=== PATIENT | male | born 1935 | race Caucasian/White ===

== ENCOUNTER 2018-05-25 11:40 | Outpatient (CLI) | payer MEDICARE, BC, MEDICAID | END 2018-05-25 23:59 | disposition home or self-care (01) | LOC: LAB 11:40 | PROVIDERS: ATTEND Internal Medicine Critical Care Medicine | DX: R05 Cough (principal); R06.02 Shortness of breath; Z87.891 Personal history of nicotine dependence | CPT/HCPCS: 36415 ==

== ENCOUNTER 2018-07-31 12:07 | Outpatient (CLI) | payer MEDICARE, BC, MEDICAID, OTHER | END 2018-07-31 23:59 | disposition home or self-care (01) | LOC: CARD DIAG 12:07 | PROVIDERS: ATTEND Internal Medicine Critical Care Medicine | DX: I08.3 Combined rheumatic disorders of mitral, aortic and tricuspid valves (principal); Z87.891 Personal history of nicotine dependence | CPT/HCPCS: 93306 ==

== ENCOUNTER 2018-10-26 09:07 | Emergency (ER) | payer MEDICARE, BC, MEDICAID, OTHER ==
[~2018-10-26] VITALS: Ht 170.2 cm; Wt 90.9 kg
[2018-10-26 10:17] LABS: BASOPHILS # (AUTO) 0.1 X10'3 (0-0.2); BASOPHILS % (AUTO) 0.8 % (0-1); EOSINOPHILS # (AUTO) 0.3 X10'3 (0-0.9); EOSINOPHILS % (AUTO) 2.6 % (0-6); HEMATOCRIT 48.4 % (42.0-52.0); HEMOGLOBIN 15.7 g/dl (14.0-17.9); LYMPHOCYTES # (AUTO) 0.9 X10'3 (1.1-4.8); LYMPHOCYTES % (AUTO) 7.5 % (21-51); MEAN CORPUSCULAR HEMOGLOBIN 29.8 PG (27.0-31.0); MEAN CORPUSCULAR HGB CONC 32.5 g/dL (33.0-36.5); MEAN CORPUSCULAR VOLUME 91.8 FL (78-98); MEAN PLATELET VOLUME 7.2 FL (7.4-10.4); MONOCYTES # (AUTO) 0.6 X10'3 (0-0.9); MONOCYTES % (AUTO) 4.8 % (2-12); NEUTROPHILS # (AUTO) 10.2 X10'3 (1.8-7.7); NEUTROPHILS % (AUTO) 84.3 % (42-75); PLATELET COUNT 238 X10'3 (140-440); RED BLOOD COUNT 5.27 X10'6 (4.70-6.10); RED CELL DISTRIBUTION WIDTH 16.1 % (11.5-14.5); WHITE BLOOD COUNT 12.1 X10'3 (4.5-11.0)
[2018-10-26 10:23] LABS: ALANINE AMINOTRANSFERASE 18 U/L (12-78); ALBUMIN 3.5 G/DL (3.4-5.0); ALKALINE PHOSPHATASE 89 IU/L (46-116); ANION GAP 7 (8-16); ASPARTATE AMINO TRANSFERASE 16 U/L (10-37); BILIRUBIN,TOTAL 0.9 MG/DL (0.1-1.0); BLOOD UREA NITROGEN 18 MG/DL (7-18); BUN/CREATININE RATIO 16.1 (5.4-32.0); CALCIUM 9.2 MG/DL (8.5-10.1); CHLORIDE 102 MMOL/L (99-107); CREATININE 1.12 MG/DL (0.60-1.10); GLUCOSE 108 MG/DL (70-104); LIPASE 97 U/L (73-393); POTASSIUM 4.3 MMOL/L (3.5-5.1); SODIUM 135 MMOL/L (135-145); TOTAL CARBON DIOXIDE 26.3 MMOL/L (24-32); TOTAL PROTEIN 7.1 G/DL (6.4-8.2); eGFR 63 ML/MIN
[2018-10-26] MEDS ORDERED: VALA100027 PO (10:50)
[2018-10-26] MEDS ORDERED: HYDR-4353 PO (10:50)
[2018-10-26 11:09] VITALS: BP 127/80
== END 2018-10-26 10:59 | disposition home or self-care (01) ==
LOC: ER 09:07
DX: B02.9 Zoster without complications (principal); Z88.7 Allergy status to serum and vaccine
CPT/HCPCS: 36415; 80053; 83690; 85025; 85610; 99283

== ENCOUNTER 2019-11-29 12:25 | Outpatient (CLI) | payer MEDICARE, BC, MEDICAID ==
[~2019-11-29 12:25] MED LIST: VALA100031 PO
== END 2019-11-29 23:59 | disposition home or self-care (01) ==
LOC: CARD DIAG 12:25
DX: I08.1 Rheumatic disorders of both mitral and tricuspid valves (principal)
CPT/HCPCS: 93306

== ENCOUNTER 2020-10-25 13:51 | Outpatient (CLI) | payer MEDICARE, BC, MEDICAID | END 2020-10-25 23:59 | disposition home or self-care (01) | LOC: CARD DIAG 13:51 | DX: I08.1 Rheumatic disorders of both mitral and tricuspid valves (principal); Z95.2 Presence of prosthetic heart valve | CPT/HCPCS: 93306 ==